=== PATIENT | female | born 1945 | race Two or more races ===

== ENCOUNTER → 2017-09-17 | Outpatient (CLI) | payer OTHER ==
[~2017-09-17] MED LIST: BUSPIRONE HCL5 MG; LIPITOR40 MG; PLAVIX75 MG; TOPROL XL25 M1; ZOLOFT100 MG
== END | disposition home or self-care (01) ==
LOC: RAD 08:37 → MAMO-SONO 09:45
DX: M06.4 Inflammatory polyarthropathy (principal); L40.0 Psoriasis vulgaris; M19.041 Primary osteoarthritis, right hand; M19.042 Primary osteoarthritis, left hand; M17.0 Bilateral primary osteoarthritis of knee

== ENCOUNTER 2017-09-26 09:19 | Outpatient (CLI) | payer OTHER | END 2017-09-26 09:21 | disposition home or self-care (01) | LOC: NUCLEAR 09:19 | DX: M81.0 Age-related osteoporosis without current pathological fracture (principal) ==